=== PATIENT | male | born 1955 | race Caucasian/White ===

== ENCOUNTER 2019-04-02 03:34 | Emergency (ER) | payer MEDICARE, OTHER ==
[~2019-04-02] VITALS: Ht 167.6 cm; Wt 72.6 kg
--- NOTE | 2019-04-02 03:45 | NUR ---
ED Nurse Note: Recieved pt from [facility] with c/o severe constipation, wont state how long, just yells and screams at staff to do somehting, pt using profanity and yelling and shouting very loud, pt is anxious and very agitated, MD aware and at bedside, will resume care as ordered and continue to closely monitor.
[2019-04-02] MEDS ORDERED: LACTULOSE20 GM/301 ORAL (03:53)
--- NOTE | 2019-04-02 03:53 | Emergency Room Report ---
History of Present Illness General Chief Complaint: Constipation Source: Patient Present Illness HPI This is a 63-year-old male with a psychiatric history. He is also homeless. He presents with chief complaint of constipation. This is a chronic problem for him. He is tried MiraLAX without any relief. He said he a but did not the hospital and had enema that helped. Denies any fever chills. Denies any abdominal pain. No nausea no vomiting. No diarrhea. Allergies: Coded Allergies: DIVALPROEX SODIUM (Verified Allergy, Unknown, 04/02/19) HALOPERIDOL (Verified Allergy, Unknown, 04/02/19) LITHIUM (Verified Allergy, Unknown, 04/02/19) Patient History Past Medical History: see triage record, old chart reviewed Past Surgical History: none Pertinent Family History: none Social History: Reports: smoking Immunizations: other Reviewed Nursing Documentation: PMH: Agreed; PSxH: Agreed Review of Systems Eye: Denies: eye pain, blurred vision ENT: Denies: ear pain, nose congestion, throat swelling Respiratory: Denies: cough, shortness of breath Cardiovascular: Denies: chest pain, palpitations Gastrointestinal: Denies: abdominal pain, diarrhea, nausea, vomiting Musculoskeletal: Denies: back pain, joint pain Skin: Denies: rash Neurological: Denies: headache, numbness Endocrine: Denies: increased thirst, increased urine Hematologic/Lymphatic: Denies: easy bruising All Other Systems: negative except mentioned in HPI Physical Exam Vital Signs Date Time Temp Pulse Resp B/P (MAP) Pulse Ox O2 Delivery O2 Flow Rate FiO2 04/02/19 03:32 97.3 123 22 125/87 (100) 98 Room Air Vitals normal except for tachycardia Sp02 EP Interpretation: reviewed, normal General Appearance: well appearing, no apparent distress, alert Head: normocephalic, atraumatic Eyes: bilateral eye PERRL, bilateral eye EOMI ENT: hearing grossly normal, normal pharynx Neck: full range of motion, supple, no meningismus Respiratory: chest non-tender, lungs clear, normal breath sounds Cardiovascular #1: regular rate, rhythm, no murmur Gastrointestinal: normal bowel sounds, non tender, no mass, no organomegaly, no bruit, non-distended Musculoskeletal: back normal, normal range of motion, gait/station normal Psychiatric: mood/affect normal Medical Decision Making Diagnostic Impression: Primary Impression: Constipation Qualified Codes: K59.00 - Constipation, unspecified ER Course Patient with constipation. No evidence of any obstruction. Abdominal exam is benign. Is soft. No evidence of obstruction. He is eating drinking without any problem. His heart rate is 100. When I offer group home, he refused. Last Vital Signs Date Time Temp Pulse Resp B/P (MAP) Pulse Ox O2 Delivery O2 Flow Rate FiO2 04/02/19 03:32 97.3 123 22 125/87 (100) 98 Room Air Status: improved Disposition: HOME, SELF-CARE Condition: Stable Scripts Lactulose (LACTULOSE*) 20 Gm/30 Ml Solution 30 ML ORAL DAILY, #240 ML 0 Refills Prov: Jose Angel Ny MD 04/02/19 Patient Instructions: Constipation, Adult Additional Instructions: Increase fluids. Increase fiber. Follow with your doctor in 7 days but return if worse. Jose Angel Ny MD Apr 02, 2019 03:53
[2019-04-02] MEDS ORDERED: Fleet's Enema 133ml RECTAL ONE (04:00)
[2019-04-02 05:45] VITALS: BP 149/92
--- NOTE | 2019-04-02 05:45 | NUR ---
ER DISCHARGE NOTE: Patient is cleared to be discharged per ERMD, pt is aox4, on room air, with stable vital signs. pt was given dc and prescription instructions, pt was able to verbalize understanding, pt id band removed without complications. pt is able to ambulate with steady gait. pt took all belongings.
[2019-04-02 05:50] VITALS: BP 149/92
== END 2019-04-02 05:50 | disposition home or self-care (01) ==
LOC: EDBD 03:34 → EMR 04:40
DX: K59.00 Constipation, unspecified (principal); Z59.0 Homelessness; Z88.8 Allergy status to other drugs, medicaments and biological substances; R00.0 Tachycardia, unspecified
CPT/HCPCS: 99282

== ENCOUNTER 2019-04-02 07:54 | Emergency (ER) | payer MEDICARE, OTHER ==
[~2019-04-02] VITALS: Ht 170.2 cm; Wt 72.6 kg
[~2019-04-02 07:54] MED LIST: LACTULOSE20 GM/301 ORAL
--- NOTE | 2019-04-02 07:55 | Emergency Room Report ---
History of Present Illness General Chief Complaint: Abdominal Pain Source: Patient Present Illness HPI Patient is a 63-year-old male brought in by EMS after persistent constipation. Patient reports having decreased bowel movements for the past 2 days. Prior history of bipolar disorder. Denies any vomiting. Denies any increased abdominal distention. He reportedly had been able to tolerate oral fluids well. Denies any fever. Allergies: Coded Allergies: DIVALPROEX SODIUM (Verified Allergy, Unknown, 04/02/19) HALOPERIDOL (Verified Allergy, Unknown, 04/02/19) LITHIUM (Verified Allergy, Unknown, 04/02/19) Patient History Past Medical History: see triage record Reviewed Nursing Documentation: PMH: Agreed; PSxH: Agreed Review of Systems All Other Systems: negative except mentioned in HPI Physical Exam Vital Signs Date Time Temp Pulse Resp B/P (MAP) Pulse Ox O2 Delivery O2 Flow Rate FiO2 04/02/19 07:51 97.5 113 131/87 (102) 96 Room Air Sp02 EP Interpretation: reviewed, normal General Appearance: no apparent distress, alert, GCS 15, Chronically Ill Head: atraumatic ENT: normal ENT inspection, hearing grossly normal, normal voice Neck: normal inspection, full range of motion, supple, no bony tend Respiratory: normal inspection, lungs clear, normal breath sounds, no respiratory distress, no retraction, no wheezing Cardiovascular #1: regular rate, rhythm, no edema Gastrointestinal: normal inspection, normal bowel sounds, non tender, soft, no guarding, no hernia Rectal: normal rectal tone, prostate non-tender Genitourinary: no CVA tenderness Musculoskeletal: normal inspection, back normal, normal range of motion Neurologic: alert, motor strength/tone normal, scientific software developer III-XII nml as tested, oriented x3, responsive, speech normal, normal inspection Psychiatric: normal inspection, judgement/insight normal, mood/affect normal Medical Decision Making Diagnostic Impression: Primary Impression: Constipation ER Course Patient present for constipation. Differential diagnosis include was not limited to fecal impaction, bowel obstruction, ileus among others. Patient has a benign exam and does not appear to require any imaging or laboratory testing at this time. Patient appears to have longstanding history of constipation. He was unable to fill his prescriptions from previous visit.Patient was given enema in the emergency department. Patient was advised to follow-up with primary care physician for recheck and follow-up with GI if symptoms persist. Patient appears to be stable for outpatient management. Patient be discharged. The patient is advised to follow up with primary care doctor in 1-2 days. Patient is advised to return if any worsening condition or if any changes in status that are concerning. This report is dictated with [employer] chem[employer] software which may occasionally lead to discrepancies related to use of this software. Last Vital Signs Date Time Temp Pulse Resp B/P (MAP) Pulse Ox O2 Delivery O2 Flow Rate FiO2 04/02/19 07:51 97.5 113 131/87 (102) 96 Room Air Status: improved Disposition: HOME, SELF-CARE Condition: Stable Emery Louis MD Apr 02, 2019 07:55
[2019-04-02 08:00] VITALS: BP 131/87
[2019-04-02] MEDS ORDERED: Fleet's Enema 133ml RECTAL ONE (08:00)
--- NOTE | 2019-04-02 08:00 | NUR ---
ED Nurse Note: Pt BIBA found from [facility] [address]. Pt is AOx4, noted to be irritable and screaming "I'm constipated!" CARE COORDINATOR. Noted HR 110; on RA. Placed on bed. Per paramedics pt has been constipated "for a month". Fleet enema administered per ERMD.
[2019-04-02] MEDS ORDERED: Fleet's Mineral Oil Enema RECTAL ONE (08:30)
[2019-04-02] MEDS ORDERED: Lidocaine HCl 2% Jelly 6ml Tube TOPIC ONE ×2 (08:51→09:15)
--- NOTE | 2019-04-02 08:57 | NUR ---
ED Nurse Note: Verbal order given by ED MD to pull out lidocaine jelly from pyxsis. Medication pulled and given to ED MD.
[2019-04-02 09:11] VITALS: BP 130/84
--- NOTE | 2019-04-02 09:11 | NUR ---
ER DISCHARGE NOTE: Patient is being discharged from medical care. Awake, alert and oriented x4. After care instructions, including referral to community resources were offered but pt refused. Patient verbalized understanding of After care instructions; at this time patient does not request medications, equipment or placement. ID bracelet was removed. Patient ambulated out with all personal belongings with steady gait.
== END 2019-04-02 09:11 | disposition home or self-care (01) ==
LOC: EDBD 07:54 → EMR 08:03
DX: K59.00 Constipation, unspecified (principal); Z88.8 Allergy status to other drugs, medicaments and biological substances; F31.9 Bipolar disorder, unspecified
CPT/HCPCS: 99282